=== PATIENT | female | born 1985 | race Two or more races ===

== ENCOUNTER 2019-06-01 04:44 | Emergency (ER) | payer MEDICAID ==
[~2019-06-01] VITALS: Ht 152.4 cm; Wt 50.0 kg
[~2019-06-01 04:44] MED LIST: ALBU8.5H4 IH; HYDR-2561 PO; RISP0.256 PO; TOP25T PO
[2019-06-01 04:45] VITALS: BP 139/98
[2019-06-01] MEDS ORDERED: ALBU18HF2 INH (05:01)
[2019-06-01] MEDS ORDERED: DOXY100C43 PO (05:01)
[2019-06-01] MEDS ORDERED: PRED20TA PO (05:01)
== END 2019-06-01 05:04 | disposition left against medical advice (07) ==
LOC: ER 04:45
DX: J20.9 Acute bronchitis, unspecified (principal); F17.210 Nicotine dependence, cigarettes, uncomplicated; J45.909 Unspecified asthma, uncomplicated; F41.9 Anxiety disorder, unspecified; F31.9 Bipolar disorder, unspecified; F12.90 Cannabis use, unspecified, uncomplicated; F15.90 Other stimulant use, unspecified, uncomplicated; F10.99 Alcohol use, unspecified with unspecified alcohol-induced disorder; Z71.6 Tobacco abuse counseling; Z90.89 Acquired absence of other organs; Z98.890 Other specified postprocedural states; Z79.899 Other long term (current) drug therapy; Y90.9 Presence of alcohol in blood, level not specified
CPT/HCPCS: 99283; 99406